=== PATIENT | female | born 1970 | race Caucasian/White ===

== ENCOUNTER → 2016-04-27 | Outpatient (CLI) | payer OTHER ==
[~2016-04-27] MED LIST: ALPR0.25 PO; ALPR0.254 PO; FAMO20TA3 PO; HYOS0.1281 PO; LEVO250T11 PO; LISI10TA2 PO; MELO15TA39 PO; METF500T4 PO; METO-333 PO; METO25TA6 PO; MTF500T PO; NAPR220T66 PO; OXYC-464 PO; PANT40SU PO; PANT40TA3 PO; PHEN-640 PO; SUCR1TAB PO; TAMS0.4C98 PO; VENL75CA PO; VENL75CA93 PO
--- OUTSIDE RECORDS SUMMARY | 2016-04-27 14:37 | XMS REPORT | Continuity of Care Document ---
Author Author [facility] Organization [facility] Address Unknown Phone Unavailable Support Name Relationship Address Phone JAMESON CUNNINGHAM DO Caregiver [address] [place] [address] TONY GILMORE MD Caregiver [address] [place] [address] SIDNEY SANJUANAEDIL Next Of Kin [address] [place] [address] Insurance Providers Payer Name Policy Number Subscriber Name Relationship [place] [id number] Shyanne Moran 18 Self / Same As Patient Advance Directives Directive Response Recorded Date/Time Advance Directives No 02/27/14 10:50am Health Care Power of Juice Bar Team Member No 02/27/14 10:50am Organ Donor Yes 02/27/14 10:50am Resuscitation Status Full Code 02/27/14 10:50am Problems No known problems or medical conditions. Medications Medication Dose Route Sig Days/Qty Instructions Order Date Discontinued Date Status Venlafaxine HCl 75 Mg PO DAILY 02/26/14 Active Metformin HCl (Glucophage) 1 Each PO TWICE A DAY WITH MEALS 02/26/14 Active Metoprolol Tartrate 25 Mg PO TWICE A DAY 02/26/14 Active Lisinopril 10 Mg PO DAILY 02/26/14 Active Alprazolam 0.125-0.25 Mg PO Q8-12HOURS 02/26/14 Active Social History Social History Problem Response Recorded Date/Time Recent Foreign Travel No 02/27/2014 12:20pm Smoking Status Current Everyday Smoker 02/27/2014 10:50am Do you dip or chew tobacco? No 02/27/2014 10:50am Query Response Start Date Stop Date Smoking Status Current Everyday Smoker Hospital Discharge Instructions No hospital discharge instructions. Plan of Care No plan of care. Functional Status No functional status results. Allergies, Adverse Reactions, Alerts Allergen Type Severity Reaction Status Last Updated Penicillins ([id number]) Allergy Unknown ITCHING HANDS AND FEET Active Immunizations Name Given Type Date of Pneumonia Vaccine 03/08/03 Historical Date of Influenza Vaccine 11/06/13 Historical Vital Signs Acute Vital Signs Vital Response Date/Time Temperature (Fahrenheit) 97.8 degrees F (97.6 - 99.5) Temperature (Calculated Celsius) 36.18302 degrees C (36.4 - 37.5) Temperature Source Temporal Pulse Rate (adult) 76 bpm (60 - 90) Respiratory Rate 20 bpm (12 - 24) O2 Sat by Pulse Oximetry 95 % (88 - 100) Blood Pressure 142/89 mm Hg Pain Pain Intensity 1 Height (Feet) 5 feet Height (Inches) 4.00 inches Height (Calculated Centimeters) 162.633186 cm Weight (Pounds) 186 pounds Weight (Calculated Grams) 19410.182 gm Weight (Calculated Kilograms) 84.650690 kilograms Height 5 ft 4 in Weight 186 lb Body Mass Index 31.9 kg/m^2 Results Laboratory Results Test Name Result Units Flags Reference Collection Date/Time Result Date/ Time Comments White Blood Count 7.1 10^3/uL 4.3-11.0 02/26/2014 12:00pm 02/26/2014 12 :25pm Red Blood Count 4.25 10^6/uL L 4.35-5.85 02/26/2014 12:00pm 02/26/2014 12 :25pm Hemoglobin 13.1 G/DL 11.5-16.0 02/26/2014 12:00pm 02/26/2014 12:25pm Hematocrit 38 % 35-52 02/26/2014 12:00pm 02/26/2014 12:25pm Mean Corpuscular Volume 90 FL 80-99 02/26/2014 12:00pm 02/26/2014 12: 25pm Mean Corpuscular Hemoglobin 31 PG 25-34 02/26/2014 12:00pm 02/26/2014 12:25pm Mean Corpuscular Hemoglobin Concent 34 G/DL 32-36 02/26/2014 12:00pm 12:25pm Red Cell Distribution Width 11.8 % 10.0-14.5 02/26/2014 12:00pm 2013 12:25pm Platelet Count 344 10^3/uL 130-400 02/26/2014 12:00pm 02/26/2014 12: 25pm Mean Platelet Volume 9.8 FL 7.4-10.4 02/26/2014 12:00pm 02/26/2014 12: 25pm Neutrophils (%) (Auto) 48 % 42-75 02/26/2014 12:00pm 02/26/2014 12: 25pm Lymphocytes (%) (Auto) 39 % 12-44 02/26/2014 12:00pm 02/26/2014 12: 25pm Monocytes (%) (Auto) 10 % 0-12 02/26/2014 12:00pm 02/26/2014 12:25pm Eosinophils (%) (Auto) 2 % 0-10 02/26/2014 12:00pm 02/26/2014 12:25pm Basophils (%) (Auto) 1 % 0-10 02/26/2014 12:00pm 02/26/2014 12:25pm Neutrophils # (Auto) 3.4 X 10^3 1.8-7.8 02/26/2014 12:00pm 02/26/2014 12:25pm Lymphocytes # (Auto) 2.8 X 10^3 1.0-4.0 02/26/2014 12:00pm 02/26/2014 12:25pm Monocytes # (Auto) 0.7 X 10^3 0.0-1.0 02/26/2014 12:00pm 02/26/2014 12: 25pm Eosinophils # (Auto) 0.1 10^3/uL 0.0-0.3 02/26/2014 12:00pm 02/26/2014 12:25pm Basophils # (Auto) 0.1 10^3/uL 0.0-0.1 02/26/2014 12:00pm 02/26/2014 12 :25pm Prothrombin Time 11.6 SEC L 12.2-14.7 02/26/2014 12:00pm 02/26/2014 12: 36pm INR Comment 0.9 0.8-1.4 02/26/2014 12:00pm 02/26/2014 12:36pm INTERPRETIVE DATA SUGGESTED THERAPEUTIC RANGE FOR INR'S: VENOUS THROMBOSIS, PULMONARY EMBOLISM, OR PREVENTION OF SYSTEMIC EMBOLISM (EG. IN ATRIAL FIBRILLATION): 2.0 - 3.0 MECHANICAL PROSTHETIC HEART VALVES: 2.5 - 3.5* *NOTE: INR'S UP TO 4.5 MAY BE NECESSARY IN SELECTED GROUPS OF HIGH RISK PATIENTS. [employer] CONSENSUS CONFERENCE ON ANTITHROMBOTIC THERAPY (2000). Sodium Level 141 MMOL/L 135-145 02/26/2014 12:00pm 02/26/2014 12:42pm Potassium Level 4.0 MMOL/L 3.6-5.0 02/26/2014 12:00pm 02/26/2014 12: 42pm Chloride Level 108 MMOL/L H 98-107 02/26/2014 12:00pm 02/26/2014 12:42pm Carbon Dioxide Level 23 MMOL/L 21-32 02/26/2014 12:00pm 02/26/2014 12: 42pm Blood Urea Nitrogen 15 MG/DL 7-18 02/26/2014 12:00pm 02/26/2014 12: 42pm Creatinine 0.73 MG/DL 0.60-1.30 02/26/2014 12:00pm 02/26/2014 12:42pm BUN/Creatinine Ratio 21 02/26/2014 12:00pm 02/26/2014 12:42pm Estimat Glomerular Filtration Rate > 60 02/26/2014 12:00pm 2013 12:42pm GFR INTERPRETIVE DATA UNITS FOR ESTIMATED GFR (eGFR): mL/min/1.73 M2 REFERENCE RANGE FOR ESTIMATED GFR (eGFR) eGFR NORMAL eGFR >60 MODERATELY DECREASED eGFR 30-59 SEVERLY DECREASED eGFR 15-29 KIDNEY FAILURE <15 (OR DIALYSIS) Glucose Level 75 MG/DL 70-105 02/26/2014 12:00pm 02/26/2014 12:42pm Calcium Level 9.2 MG/DL 8.5-10.1 02/26/2014 12:00pm 02/26/2014 12:42pm Procedures Procedure Status Date Provider(s) Excision of lesion completed 02/27/14 JAMESON CUNNINGHAM DO Encounters Encounter Location Date/Time Registered Surgical Day Care [facility] 02/27/14 11:30am Registered Clinic [facility] 02/26/14 11:36am
--- NOTE | 2016-04-27 18:51 | Diagnostic Imaging Report ---
INDICATION: Pain and swelling. Three views were obtained. FINDINGS: The alignment is normal. There is no fracture or dislocation. Soft tissues are unremarkable. IMPRESSION: No acute fracture or dislocation. Dictated by: Dictated on workstation # [id number]
== END ==
LOC: RAD 14:34
PROVIDERS: ATTEND Family Medicine
DX: M79.671 Pain in right foot (principal)
CPT/HCPCS: 73630

== ENCOUNTER → 2017-02-08 | Outpatient (CLI) | payer OTHER ==
--- NOTE | 2017-02-08 20:06 | Diagnostic Imaging Report ---
EXAMINATION: Supine view of the abdomen. INDICATION: Kidney stones. COMPARISON: 06/18/2015. FINDINGS: Pelvic calcifications compatible with phleboliths and in addition surgical clip and suggestion of calcified suture lines are seen in the pelvis. No definitive urinary tract stone is seen. Surgical clips in the upper right abdomen are noted. IMPRESSION: No definitive urinary tract stone. Dictated by: Dictated on workstation # [id number]
== END ==
LOC: RAD 15:38
PROVIDERS: ATTEND Urology
DX: Z09 Encounter for follow-up examination after completed treatment for conditions other than malignant neoplasm (principal); Z87.442 Personal history of urinary calculi
CPT/HCPCS: 74000

== ENCOUNTER → 2018-11-04 | Outpatient (CLI) | payer BC ==
[~2018-11-04] VITALS: Ht 165.1 cm; Wt 75.6 kg
[~2018-11-04] MED LIST changes: +CITA20TA9 PO; +LISI-552 PO; +METF-397 PO; -METF500T4 PO; +OMEP40CA36 PO
[2018-11-04 12:01] VITALS: BP 136/96
[2018-11-04 13:15] LABS: BASOPHILS % (AUTO) 1 % (0-10); EOSINOPHILS # (AUTO) 0.2 10^3/uL (0.0-0.3); EOSINOPHILS % (AUTO) 2 % (0-10); HEMATOCRIT 42 % (35-52); HEMOGLOBIN 13.7 G/DL (11.5-16.0); LYMPHOCYTES # (AUTO) 2.2 X 10^3 (1.0-4.0); LYMPHOCYTES % (AUTO) 30 % (12-44); MEAN CORPUSCULAR HEMOGLOBIN 29 PG (25-34); MEAN CORPUSCULAR HGB CONC 33 G/DL (32-36); MEAN CORPUSCULAR VOLUME 88 FL (80-99); MEAN PLATELET VOLUME 10.1 FL (7.4-10.4); MONOCYTES # (AUTO) 0.4 X 10^3 (0.0-1.0); MONOCYTES % (AUTO) 6 % (0-12); NEUTROPHILS # (AUTO) 4.4 X 10^3 (1.8-7.8); NEUTROPHILS % (AUTO) 61 % (42-75); PLATELET COUNT 334 10^3/uL (130-400); RED CELL DISTRIBUTION WIDTH 13.5 % (10.0-14.5); WHITE BLOOD COUNT 7.2 10^3/uL (4.3-11.0)
== END ==
LOC: PREOP 11:34
PROVIDERS: ATTEND Surgery
DX: Z01.812 Encounter for preprocedural laboratory examination (principal); K57.90 Diverticulosis of intestine, part unspecified, without perforation or abscess without bleeding
CPT/HCPCS: 36415; 85025; 86850; 86900; 86901; 87081

== ENCOUNTER 2018-11-10 09:10 | Inpatient (IN) | payer BC, OTHER ==
[~2018-11-10] VITALS: Ht 165.1 cm; Wt 75.6 kg
[2018-11-10] VITALS (11 sets, daily range): BP systolic 109–137; BP diastolic 61–96
[2018-11-10] MEDS ORDERED: SCOPOLAMINE 1.5 MG (TRANSDERM-SCOP) PATCH TOP ONE (09:30)
[2018-11-10] MEDS ORDERED: FAMOTIDINE 20MG/2ML IV (PEPCID) IV ONE (09:30)
[2018-11-10] MEDS ORDERED: ONDANSETRON 4 MG/2 ML (SDV) Z0FRAN IV ONE (09:30)
[2018-11-10] MEDS ORDERED: FAMOTIDINE 20MG/2ML IV (PEPCID) ONE (09:35)
[2018-11-10] MEDS ORDERED: ONDANSETRON 4 MG/2 ML (SDV) Z0FRAN ONE ×2 (09:35→09:54)
[2018-11-10] MEDS ORDERED: SCOPOLAMINE 1.5 MG (TRANSDERM-SCOP) PATCH ONE (09:35)
[2018-11-10] MEDS ORDERED: SEVOFLURANE (ULTANE) 15 ML INHAL SOLN ONE ×7 (09:54→12:43)
[2018-11-10] MEDS ORDERED: DEXAMETHASONE 10 MG/ML (DECADRON) 1 ML VIAL ONE (09:54)
[2018-11-10] MEDS ORDERED: LIDOCAINE PF 2% 5 ML (XYLOCAINE) VIAL ONE (09:54)
[2018-11-10] MEDS ORDERED: BUPIVACAINE 0.5% 30 ML (SENSORCAINE) VIAL ONE (09:54)
[2018-11-10] MEDS ORDERED: proPOfol 200 MG/20 ML (DIPRIVAN) VIAL IV ONE (09:54)
[2018-11-10] MEDS ORDERED: fentaNYL INJECTION 100 MCG/2 ML AMP ONE ×2 (09:55→12:38)
[2018-11-10] MEDS ORDERED: BUP/EPI 0.25% 1:200,000 (MARCAINE) 10 ML VIAL IJ ONE (09:57)
[2018-11-10] MEDS ORDERED: MIDAZOLAM 2 MG/2 ML (VERSED) VIAL ONE (09:57)
[2018-11-10] MEDS ORDERED: ROCURONIUM 10 MG/ML 5 ML SYRINGE IV ONE (09:58)
[2018-11-10] MEDS ORDERED: CATHETER FLUSH 10 ML SYR IV PRN (10:00)
[2018-11-10] MEDS ORDERED: metroNIDAZOLE 500MG/100ML IVPB 100 ML IV ONE (10:00)
[2018-11-10] MEDS ORDERED: CLINDAMYCIN 600 MG/50 ML IVPB 50 ML IV ONE (10:00)
[2018-11-10] MEDS: LACTATED RINGERS 1,000 ML IV PRN ×3 (10:07→13:20)
--- NOTE | 2018-11-10 10:43 | Progress Note-Pre Operative ---
Pre-Operative Progress Note H&P Reviewed The H&P was reviewed, patient examined and no changes noted. Date Seen by Provider: Nov 10, 2018 Time Seen by Provider: 10:43 Date H&P Reviewed: Nov 10, 2018 Time H&P Reviewed: 10:43 Pre-Operative Diagnosis: diverticular stricture ALTON PATEL DO Nov 10, 2018 10:43
[2018-11-10] MEDS ORDERED: NEOSTIGMINE 3 MG/3 ML VIAL ONE (12:44)
[2018-11-10] MEDS ORDERED: GLYCOPYRROLATE 0.2 MG/ML (ROBINUL) 2 ML VIAL ONE (12:44)
[2018-11-10] MEDS ORDERED: morphine INJ 10 MG/ML 1ML (SYR OR VIAL) IVP ONE (13:30)
[2018-11-10] MEDS ORDERED: PROMETHAZINE INJ 25 MG/ML (PHENERGAN) AMP IVP ONE (13:30)
[2018-11-10] MEDS ORDERED: ONDANSETRON 4 MG/2 ML (SDV) Z0FRAN IVP PRN (13:30)
[2018-11-10] MEDS ORDERED: HYDROmorphone 2 MG/ML VIAL (DILAUDID) IV ONE (13:30)
[2018-11-10] MEDS ORDERED: MEPERIDINE (DEMEROL) INJ 50 MG/ML IVP ONE (13:30)
[2018-11-10] MEDS ORDERED: HYDROmorphone 2 MG/ML VIAL (DILAUDID) ONE (13:31)
--- NOTE | 2018-11-10 13:37 | Progress Note-Post Operative ---
Post-Operative Progess Note Surgeon (s)/Small Electric Engine Technician (s) Surgeon ALTON PATEL DO Small Electric Engine Technician: Dr. Concepcion Pre-Operative Diagnosis diverticular stricture Post-Operative Diagnosis same Procedure & Operative Findings Date of Procedure 11/10/18 Procedure Performed/Findings lap hand assisted sigmoid resection Anesthesia Type gen Estimated Blood Loss Estimated blood loss (mL): minimal Specimens/Packing Specimens Removed sigmoid colon ALTON PATEL DO Nov 10, 2018 13:37
--- NOTE | 2018-11-10 14:25 | NUR ---
Pt arrived to room 418 from PACU post surgical lap/hand assisted sigmoid colon resection. Pt is awake and oriented x 4, LR infusing into L) wrist. Island dressing to midline abdomen has moderate sanguinous drainage, bandaids Addendum: 11/10/18 at 1533 by BOWEN HUNTLEY RN bandaids to lap sites x 2 intact and c/d/i
[2018-11-10] MEDS: NS IV 1000 ML 1,000 ML IV SCH ×2 (15:14→21:43)
[2018-11-10] MEDS: HYDROcodone/APAP 5 MG/325 MG (LORTAB) TAB PO PRN ×2 (15:44→20:06)
[2018-11-10] MEDS: inSUlin ASPART (NovoLOG) 1 UNIT/0.01 ML (CHARGE PER UNIT) SC SCH ×2 (16:11→21:07)
[2018-11-10] MEDS: CLINDAMYCIN 600 MG/50 ML IVPB 50 ML IV SCH (17:12)
[2018-11-10] MEDS: metroNIDAZOLE 500MG/100ML IVPB 100 ML IV SCH (17:50)
[2018-11-10] MEDS: morphine INJ 4 MG/ML 1 ML (VIAL/SYRINGE) IV PRN (20:06)
[2018-11-10] MEDS ORDERED: ENOXAPARIN 40 MG/0.4 ML (LOVENOX) SYR SC SCH (21:00)
[2018-11-11] VITALS: BP 131/74
[2018-11-11] MEDS: HYDROcodone/APAP 5 MG/325 MG (LORTAB) TAB PO PRN ×3 (00:13→13:05)
[2018-11-11] MEDS: NS IV 1000 ML 1,000 ML IV SCH ×3 (00:13→18:10)
[2018-11-11] MEDS: CLINDAMYCIN 600 MG/50 ML IVPB 50 ML IV SCH (02:18)
[2018-11-11] MEDS: metroNIDAZOLE 500MG/100ML IVPB 100 ML IV SCH (02:18)
[2018-11-11 04:00] VITALS: BP 134/72
[2018-11-11 05:00] LABS: BASOPHILS % (AUTO) 0 % (0-10); EOSINOPHILS % (AUTO) 0 % (0-10); HEMATOCRIT 36 % (35-52); HEMOGLOBIN 11.7 G/DL (11.5-16.0); LYMPHOCYTES # (AUTO) 1.2 X 10^3 (1.0-4.0); LYMPHOCYTES % (AUTO) 12 % (12-44); MEAN CORPUSCULAR HEMOGLOBIN 29 PG (25-34); MEAN CORPUSCULAR HGB CONC 33 G/DL (32-36); MEAN CORPUSCULAR VOLUME 88 FL (80-99); MEAN PLATELET VOLUME 9.9 FL (7.4-10.4); MONOCYTES # (AUTO) 0.9 X 10^3 (0.0-1.0); MONOCYTES % (AUTO) 9 % (0-12); NEUTROPHILS # (AUTO) 7.9 X 10^3 (1.8-7.8); NEUTROPHILS % (AUTO) 80 % (42-75); PLATELET COUNT 289 10^3/uL (130-400); RED CELL DISTRIBUTION WIDTH 13.4 % (10.0-14.5); WHITE BLOOD COUNT 9.9 10^3/uL (4.3-11.0)
[2018-11-11 05:19] LABS: ALANINE AMINOTRANSFERASE 18 U/L (0-55); ALBUMIN 3.6 GM/DL (3.2-4.5); ALKALINE PHOSPHATASE 61 U/L (40-136); BILIRUBIN,TOTAL 0.3 MG/DL (0.1-1.0); BUN/CREATININE RATIO 14; CALCIUM 8.5 MG/DL (8.5-10.1); CARBON DIOXIDE 21 MMOL/L (21-32); CHLORIDE 110 MMOL/L (98-107); CREATININE SERUM 0.77 MG/DL (0.60-1.30); GFR ESTIMATED > 60; GLUCOSE 116 MG/DL (70-105); SODIUM 139 MMOL/L (135-145); TOTAL PROTEIN 6.2 GM/DL (6.4-8.2)
[2018-11-11] MEDS: inSUlin ASPART (NovoLOG) 1 UNIT/0.01 ML (CHARGE PER UNIT) SC SCH (06:37)
--- NOTE | 2018-11-11 07:16 | Progress Note - Surgery ---
[facility] 11/11/18 0716: Subjective Date Seen by a Provider: Nov 11, 2018 Time Seen by a Provider: 07:09 Subjective/Events-last exam Patient underwent sigmoid resection yesterday. Patient is alert and oriented experiences no pain in bed and mild pain when ambulating. Patient reported problems with her catheter that was previously causing her severe pain but this has been resolved. Patient has not passed gas and has not had a bowel movement. Urinated only once since the catheter was removed at midnight last night. Patient ambulated once with help and tolerates sitting, but has only sat up in her bed. Patient used spirometer 2-3 times yesterday. Objective Exam Vital Signs Date Time Temp Pulse Resp B/P (MAP) Pulse Ox O2 Delivery O2 Flow Rate FiO2 11/11/18 04:00 97.4 87 18 134/72 (92) 98 Room Air 11/11/18 00:00 97.2 107 20 131/74 (93) 93 Room Air 11/10/18 21:00 Room Air 11/10/18 20:00 98.6 99 18 125/82 (96) 95 Room Air 11/10/18 17:48 Room Air 11/10/18 16:00 97.5 92 20 121/80 (94) 98 Room Air 11/10/18 14:25 Room Air 0 11/10/18 14:25 98.3 78 18 118/76 (90) 96 Room Air 11/10/18 14:25 97.2 20 98 Room Air 11/10/18 14:15 Room Air 0 11/10/18 14:10 20 98 Room Air 11/10/18 14:00 20 96 Room Air 11/10/18 14:00 OxyMask 3 11/10/18 13:50 20 99 OxyMask 2 11/10/18 13:45 OxyMask 3 11/10/18 13:40 20 98 OxyMask 2 11/10/18 13:30 20 100 OxyMask 5 11/10/18 13:30 OxyMask 5 11/10/18 13:20 16 100 OxyMask 5 11/10/18 13:15 OxyMask 5 11/10/18 13:12 OxyMask 5 11/10/18 13:12 97.2 16 100 OxyMask 5 11/10/18 09:35 98.0 66 16 137/83 98 Room Air 11/10/18 09:35 98.0 66 16 137/83 (101) 98 Room Air I & O 11/11/18 07:00 Intake Total 4075 ml Output Total 2050 ml Balance 2025 ml Capillary Refill : Less Than 3 Seconds Respiratory: Lungs Clear Cardiovascular: Regular Rate, Rhythm, No Murmur Results Lab Laboratory Tests 11/10/18 15:49: Glucometer 114H 11/10/18 20:39: Glucometer 116H 11/11/18 04:25: White Blood Count 9.9, Red Blood Count 4.03L, Hemoglobin 11.7, Hematocrit 36, Mean Corpuscular Volume 88, Mean Corpuscular Hemoglobin 29, Mean Corpuscular Hemoglobin Concent 33, Red Cell Distribution Width 13.4, Platelet Count 289, Mean Platelet Volume 9.9, Neutrophils (%) (Auto) 80H, Lymphocytes (%) (Auto) 12, Monocytes (%) (Auto) 9, Eosinophils (%) (Auto) 0, Basophils (%) (Auto) 0, Neutrophils # (Auto) 7.9H, Lymphocytes # (Auto) 1.2, Monocytes # (Auto) 0.9, Eosinophils # (Auto) 0.0, Basophils # (Auto) 0.0, Sodium Level 139, Potassium Level 4.0, Chloride Level 110H, Carbon Dioxide Level 21, Anion Gap 8, Blood Urea Nitrogen 11, Creatinine 0.77, Estimat Glomerular Filtration Rate > 60, BUN/Creatinine Ratio 14, Glucose Level 116H, Calcium Level 8.5, Corrected Calcium 8.8, Total Bilirubin 0.3, Aspartate Amino Transf (AST/SGOT) 19, Alanine Aminotransferase (ALT/SGPT) 18, Alkaline Phosphatase 61, Total Protein 6.2L, Al bumin 3.6 11/11/18 06:17: Glucometer 116H Assessment/Plan Assessment/Plan Assessment/Plan Continue to assess pain Ensure patient has bowel movement Ambulation Sitting up in recliner Clinical Quality Measures DVT/VTE Risk/Contraindication: Risk Factor Score Per Nursin RFS Level Per Nursing on Admit: 4+=Very High ALTON FERREIRA DO 11/11/18 1317: Subjective Subjective/Events-last exam Patient ambulating and sitting up in chair currently. Pain fairly controlled, but after walk has increased. No flatus or bm. Tolerating clears. Using IS. Denies n/v fever sweats chills shortness of breath or chest pain. Objective Exam General Appearance: No Apparent Distress HEENT: PERRL/EOMI Neck: Normal Inspection Respiratory: Chest Non Tender, No Accessory Muscle Use, No Respiratory Distress Cardiovascular: Regular Rate, Rhythm Gastrointestinal: normal bowel sounds, soft, other (incisional tenderness, c/d/i) Extremity: Normal Inspection, Non Tender Neurologic/Psychiatric: Alert, Oriented x3 Skin: Normal Color, Warm/Dry Lymphatic: No Adenopathy Assessment/Plan Assessment/Plan Assessment/Plan diverticular stricture s/p lap hand assisted sigmoid resection clear liquid diet will advance when bowel function returns if gets nauseated or emesis instructed to back off on clears pain control dvt prophylaxis ambulate IS Supervisory-Addendum Brief Verification & Attestation Participated in pt care: history, MDM, physical Personally performed: exam, history, MDM, supervision of care Care discussed with: Medical Student Procedures: n/a Results interpretation: Verified all documentation Verification and Attestation of Medical Student E/M Service A medical student performed and documented this service in my presence. I reviewed and verified all information documented by the medical student and made modifications to such information, when appropriate. I personally performed the physical exam and medical decision making. Alton Ferreira, Nov 11, 2018,13:19 [facility] Nov 11, 2018 07:16 ALTON FERREIRA DO Nov 11, 2018 13:17
[2018-11-11 08:07] VITALS: BP 138/75
--- NOTE | 2018-11-11 09:10 | OPERATIVE REPORT ---
DATE OF SERVICE: 11/10/2018 PREOPERATIVE DIAGNOSIS: Diverticular stricture. POSTOPERATIVE DIAGNOSIS: Diverticular stricture. PROCEDURE PERFORMED: Laparoscopic hand-assisted sigmoid colon resection. SURGEON: Toby Ferreira DO EDITOR MANAGING DIRECTOR: Dr. Concepcion, assisted in retraction, dissection and closure. ANESTHESIA: General. ESTIMATED BLOOD LOSS: Minimal. COMPLICATIONS: None. INDICATIONS: The patient is a 48-year-old female, who had recent colonoscopy and found to have diverticular stricture. She has also had multiple episodes of diverticulitis, which she has been treated for. She understands risks and benefits of procedure and wished to proceed with procedure. Consent was signed in the chart. DESCRIPTION OF PROCEDURE: The patient was taken to the operating suite. She was prepped and draped in sterile fashion. Surgical pause was performed. Midline incision was made all the way down to the fascia, which was then scored and then abdomen was entered. The fascial defect was increased in size to where a hand port to be placed. Under direct visualization, a left lower quadrant 12 mm incision was made for 12 mm trocar site to be placed. The Gel handport was placed and pneumoperitoneum was achieved. Under direct visualization of the laparoscope, a 12 mm trocar was placed in the right lower quadrant. There were some adhesions down into the pelvis at the sigmoid colon and also causing slight turn to it as well. A firm mass was palpable in the distal portion of the sigmoid colon. LigaSure was then used to start taking down the sigmoid colon and mobilizing it to give more mobilization. Sigmoid colon was also mobilized along the white line of Toldt up along the left pelvis and left gutter. Distal to the palpable firmness, which is presumed to be the stricture. A finger was used to dissect around the colon and a RAKESH stapler was then fired. Proximal to this diverticular stricture, we dissected around the colon as well and use an Endo-RAKESH reload firing across the specimen. LigaSure was then used to divide the mesentery. The specimen was then obtained with a stitch being placed on the proximal end. The proximal portion of the colon was then brought up through the hand port. A pursestring suture was placed and a 28 anvil was inserted and secured. This was dropped back into the abdomen and pneumoperitoneum was achieved again. Dr. Concepcion went below in order to do an end-to-end anastomosis. He did dilations first and then brought the EEA stapler into the rectum and this was then fired in the usual fashion. An air test was performed after irrigation was placed down in the pelvis. There was no leak identified. There was no tension on the colon on the anastomosis. Hemostasis had been achieved. The abdomen was then desufflated. The midline incision was then closed using 1-0 looped PDS in a running fashion and the abdomen was then reinsufflated. The abdomen had good closure. The abdomen was then desufflated, the trocars were removed. The wounds were then irrigated and suctioned and the skin was then stapled closed. The patient tolerated procedure well without any complications. She was taken to recovery room in stable condition. Job ID: [id number] DocumentID: [id number] Dictated Date: 11/10/2018 14:16:22 Numerical Analysis Group Manager Date: 11/10/2018 16:13:38 Dictated By: DO SPIKE DONNELLY
[2018-11-11] MEDS: NICOTINE 14 MG (NICODERM) PATCH TD SCH (09:48)
--- NOTE | 2018-11-11 10:58 | Physical Therapy Progress Note ---
Therapy Progress Note Patient is up independently in hallway without difficulty. No skilled therapy indicated. AMRITA BENITEZ PT Nov 11, 2018 10:58
--- NOTE | 2018-11-11 12:17 | NUR ---
Initial visit with the pt ("Rhonda") and her significant other who goes by "Kathy." Both were congenial, inviting and demonstrated ease and openness throughout our visit. They enjoy riding motorcycles together. Kathy is a member of [employer] (the chapter in [place]: [place] He and the pt have been together for over a year. The pt's parents used to ride as well. Her father 6 years ago today, and the pt now cares for her mother who was diagnosed with rectal cancer last year. She anticipated that her mother may need to move into assisted living due to increased weakness and difficulty ambulating safely.
[2018-11-11 12:59] VITALS: BP 165/91
[2018-11-11] MEDS ORDERED: ACETAMINOPHEN 325 MG TABLET PO PRN (13:15)
[2018-11-11] MEDS ORDERED: MELATONIN 3 MG TABLET PO PRN (13:15)
[2018-11-11] MEDS ORDERED: lisINopril 20 MG (PRINIVIL) TABLET PO NR (13:30)
[2018-11-11] MEDS ORDERED: hydrALAZINE (APRESOLINE) 25 MG TAB PO PRN (13:30)
[2018-11-11] MEDS ORDERED: meTOprolol TARTRATE 25 MG (LOPRESSOR) TABLET PO NR (13:30)
--- NOTE | 2018-11-11 14:00 | NUR ---
PATIENT C/O HEADACHE, REQUESTING HOME MEDICATIONS, DR MARSHALL NOTIFIED AND ORDERS GIVEN
--- NOTE | 2018-11-11 14:43 | Anesthesia-General Post-Op ---
General Patient Condition Mental Status/LOC: Same as Preop Cardiovascular: Satisfactory Nausea/Vomiting: Absent Respiratory: Satisfactory Pain: Controlled Complications: Absent Post Op Complications Complications None Follow Up Care/Instructions Patient Instructions None needed. Anesthesia/Patient Condition Patient Condition Patient is doing well, no complaints, stable vital signs, no apparent adverse anesthesia problems. MONAE COVARRUBIAS DO Nov 11, 2018 14:43
--- NOTE | 2018-11-11 15:52 | Progress Note - Hospitalist ---
Subjective HPI/CC On Admission Date Seen by Provider: Nov 11, 2018 Time Seen by Provider: 11:00 Diverticular stricture Subjective/Events-last exam She reports a headache this morning. She thinks this is due to her blood pressure being higher than normal. She denies any nausea and vomiting. She has been tolerating her clear liquid diet. She would like to have her diet advanced. She is not yet passing gas or having bowel movements. She denies any fevers and chills. She denies any chest pain or shortness of breath. She is using her incentive spirometer. Objective Exam Vital Signs Vital Signs Date Time Temp Pulse Resp B/P (MAP) Pulse Ox O2 Delivery O2 Flow Rate FiO2 11/11/18 12:59 98.5 77 20 165/91 (115) 99 Room Air 11/10/18 14:25 0 Capillary Refill : Less Than 3 Seconds General Appearance: No Apparent Distress, WD/WN HEENT: PERRL/EOMI, Pharynx Normal Neck: Normal Inspection, Supple Respiratory: Lungs Clear, Normal Breath Sounds, No Respiratory Distress Cardiovascular: Regular Rate, Rhythm, No Edema, No Murmur Gastrointestinal: Soft, Tenderness, Other (Hypoactive bowel sounds) Extremity: Normal Inspection, Non Tender, No Pedal Edema Neurologic/Psychiatric: Alert, Oriented x3 Skin: Normal Color, Warm/Dry Lymphatic: No Adenopathy Results/Procedures Lab Laboratory Tests 11/11/18 04:25 Patient resulted labs reviewed. Assessment/Plan Assessment and Plan Assess & Plan/Chief Complaint Diverticular stricture Status post partial sigmoid colectomy Tolerating a liquid diet Not yet passing gas Continue incentive spirometer Continue ambulation Begin pharmacologic DVT prophylaxis this evening with Lovenox Hypertension Resume home meds History of diabetes Blood sugars well-controlled Discontinue Accu-Cheks and sliding scale Diagnosis/Problems Diagnosis/Problems (1) Diverticular stricture Status: Resolved Resolution Date/Time: 11/10/18 @ 15:52 (2) Essential hypertension Status: Chronic Clinical Quality Measures DVT/VTE Risk/Contraindication: Risk Factor Score Per Nursin RFS Level Per Nursing on Admit: 4+=Very High AILEEN MARSHALL MD Nov 11, 2018 15:52
[2018-11-11 16:00] VITALS: BP 137/81
[2018-11-11 20:00] VITALS: BP 171/85
[2018-11-11] MEDS: morphine INJ 4 MG/ML 1 ML (VIAL/SYRINGE) IV PRN (20:43)
[2018-11-11] MEDS: meTOprolol TARTRATE 25 MG (LOPRESSOR) TABLET PO SCH (20:44)
[2018-11-11] MEDS: ENOXAPARIN 40 MG/0.4 ML (LOVENOX) SYR SC SCH (20:44)
[2018-11-12] VITALS: BP 160/91
[2018-11-12] MEDS: NS IV 1000 ML 1,000 ML IV SCH ×3 (01:45→17:46)
[2018-11-12 04:00] VITALS: BP 157/95
[2018-11-12] MEDS: PANTOPRAZOLE 40 MG (PROTONIX) TAB PO SCH (06:18)
[2018-11-12 08:00] VITALS: BP 162/89
[2018-11-12] MEDS: lisINopril 20 MG (PRINIVIL) TABLET PO SCH (08:02)
[2018-11-12] MEDS: ONDANSETRON 4 MG (ZOFRAN) ORAL DISSOLVE TAB PO PRN ×2 (08:04→13:01)
[2018-11-12] MEDS: NICOTINE PATCH REMOVAL TP SCH (08:10)
[2018-11-12] MEDS: NICOTINE 14 MG (NICODERM) PATCH TD SCH (08:10)
[2018-11-12] MEDS: meTOprolol TARTRATE 25 MG (LOPRESSOR) TABLET PO SCH ×2 (08:10→19:36)
[2018-11-12] MEDS ORDERED: lisINopril 20 MG (PRINIVIL) TABLET PO SCH (09:00)
--- NOTE | 2018-11-12 11:13 | Progress Note - Hospitalist ---
Subjective HPI/CC On Admission Date Seen by Provider: Nov 12, 2018 Time Seen by Provider: 08:30 Diverticular stricture Subjective/Events-last exam She reports that she slept okay last night. She denies any headaches this morning. She denies any nausea or vomiting. She has not yet passed gas or had a bowel movement. She has been using her incentive spirometer and ambulating. She is very hungry and is requesting to advance her diet. Objective Exam Vital Signs Vital Signs Date Time Temp Pulse Resp B/P (MAP) Pulse Ox O2 Delivery O2 Flow Rate FiO2 11/12/18 08:00 99.5 68 18 162/89 (113) 96 Room Air 11/10/18 14:25 0 Capillary Refill : Less Than 3 Seconds General Appearance: No Apparent Distress, WD/WN HEENT: PERRL/EOMI, Pharynx Normal Neck: Normal Inspection, Supple Respiratory: Lungs Clear, Normal Breath Sounds, No Respiratory Distress Cardiovascular: Regular Rate, Rhythm, No Edema, No Murmur Gastrointestinal: Other (soft, mildly tender, hypoactive bowel sounds) Extremity: Normal Inspection, Non Tender, No Pedal Edema Neurologic/Psychiatric: Alert Skin: Normal Color, Warm/Dry Results/Procedures Lab Patient resulted labs reviewed. Assessment/Plan Assessment and Plan Assess & Plan/Chief Complaint Diverticular stricture Status post partial sigmoid colectomy Tolerating a liquid diet Not yet passing gas Continue incentive spirometer Continue ambulation continue Lovenox Hypertension increase lisinopril History of diabetes Blood sugars well-controlled no need for Accu-Cheks Diagnosis/Problems Diagnosis/Problems (1) Diverticular stricture Status: Resolved Resolution Date/Time: 11/10/18 @ 15:52 (2) Essential hypertension Status: Chronic Clinical Quality Measures DVT/VTE Risk/Contraindication: Risk Factor Score Per Nursin RFS Level Per Nursing on Admit: 4+=Very High AILEEN MARSHALL MD Nov 12, 2018 11:13
[2018-11-12 12:00] VITALS: BP 150/88
--- NOTE | 2018-11-12 12:35 | Progress Note - Surgery ---
Subjective Time Seen by a Provider: 11:56 Subjective/Events-last exam Pt seen and examined, sitting in chair and states she had some flatus. Pain is still moderate and had to use IV meds. Review of Systems General: No Chills, No Night Sweats Pulmonary: No Cough Cardiovascular: No: Chest Pain Gastrointestinal: No: Nausea, Vomiting Objective Exam Vital Signs Date Time Temp Pulse Resp B/P (MAP) Pulse Ox O2 Delivery O2 Flow Rate FiO2 11/12/18 12:00 98.7 71 20 150/88 (108) 97 Room Air 11/12/18 08:00 99.5 68 18 162/89 (113) 96 Room Air 11/12/18 04:00 98.3 72 16 157/95 (115) 96 Room Air 11/12/18 00:00 98.7 70 14 160/91 (114) 96 Room Air 11/11/18 20:30 96 Room Air 11/11/18 20:00 99.9 72 18 171/85 (113) 98 Room Air 11/11/18 16:00 99.7 84 18 137/81 (99) 98 Room Air 11/11/18 12:59 98.5 77 20 165/91 (115) 99 Room Air I & O 11/12/18 07:00 Intake Total 4437 ml Balance 4437 ml Capillary Refill : Less Than 3 Seconds General Appearance: No Apparent Distress, WD/WN HEENT: PERRL/EOMI Neck: Normal Inspection, Supple Respiratory: Lungs Clear, Normal Breath Sounds, No Respiratory Distress Cardiovascular: Regular Rate, Rhythm, No Edema, No Murmur Gastrointestinal: normal bowel sounds, soft, other (incisional tenderness, c/d/i) Extremity: No Calf Tenderness, No Pedal Edema Neurologic/Psychiatric: Alert Results Lab Laboratory Tests 11/11/18 16:17: Glucometer 73 11/12/18 05:39: Glucometer 86 Assessment/Plan Assessment/Plan Assessment/Plan S/P Sigmoid resection Increase to soft diet, encourage ambulation and IS use. Once tolerating diet and on PO pain meds only; can be d/cd home. Clinical Quality Measures DVT/VTE Risk/Contraindication: Risk Factor Score Per Nursin RFS Level Per Nursing on Admit: 4+=Very High FITZ HUDSON DO Nov 12, 2018 12:35
[2018-11-12] MEDS: morphine INJ 4 MG/ML 1 ML (VIAL/SYRINGE) IV PRN ×3 (13:01→21:28)
[2018-11-12 16:00] VITALS: BP 138/80
[2018-11-12] MEDS: ENOXAPARIN 40 MG/0.4 ML (LOVENOX) SYR SC SCH (19:37)
[2018-11-13] VITALS: BP 133/80
[2018-11-13] MEDS: NS IV 1000 ML 1,000 ML IV SCH (01:49)
[2018-11-13] MEDS: PANTOPRAZOLE 40 MG (PROTONIX) TAB PO SCH (06:10)
[2018-11-13 07:11] LABS: WHITE BLOOD COUNT 6.5 10^3/uL (4.3-11.0)
[2018-11-13 07:12] LABS: MEAN PLATELET VOLUME 10.1 FL (7.4-10.4); RED CELL DISTRIBUTION WIDTH 13.6 % (10.0-14.5)
[2018-11-13 07:33] LABS: BUN/CREATININE RATIO 9; CALCIUM 8.4 MG/DL (8.5-10.1); CARBON DIOXIDE 23 MMOL/L (21-32); CHLORIDE 108 MMOL/L (98-107); CREATININE SERUM 0.76 MG/DL (0.60-1.30); GFR ESTIMATED > 60; GLUCOSE 75 MG/DL (70-105); POTASSIUM 3.2 MMOL/L (3.6-5.0); SODIUM 141 MMOL/L (135-145)
[2018-11-13] MEDS: lisINopril 20 MG (PRINIVIL) TABLET PO SCH (07:38)
[2018-11-13] MEDS: NICOTINE 14 MG (NICODERM) PATCH TD SCH (07:39)
[2018-11-13] MEDS: meTOprolol TARTRATE 25 MG (LOPRESSOR) TABLET PO SCH (07:39)
[2018-11-13] MEDS: NICOTINE PATCH REMOVAL TP SCH (07:43)
[2018-11-13 08:00] VITALS: BP 144/89
[2018-11-13] MEDS ORDERED: LISI-552 PO (09:39)
--- NOTE | 2018-11-13 09:42 | Progress Note - Hospitalist ---
Subjective HPI/CC On Admission Date Seen by Provider: Nov 13, 2018 Time Seen by Provider: 09:40 Diverticular stricture Subjective/Events-last exam She reports tolerating the soft diet well. She has been passing gas. She has not had a bowel movement. She has been ambulating. She has been using her incentive spirometer. She denies any fevers or chills. She denies any chest pain, shortness of breath, abdominal pain, nausea, or vomiting. Objective Exam Vital Signs Vital Signs Date Time Temp Pulse Resp B/P (MAP) Pulse Ox O2 Delivery O2 Flow Rate FiO2 11/13/18 08:00 97.4 68 19 144/89 (107) 98 Room Air 11/10/18 14:25 0 Capillary Refill : Less Than 3 Seconds General Appearance: No Apparent Distress, WD/WN HEENT: PERRL/EOMI, Pharynx Normal Neck: Normal Inspection, Supple Respiratory: Lungs Clear, Normal Breath Sounds, No Respiratory Distress Cardiovascular: Regular Rate, Rhythm, No Edema, No Murmur Gastrointestinal: Normal Bowel Sounds, Soft, Tenderness Extremity: Normal Inspection, Non Tender, No Pedal Edema Neurologic/Psychiatric: Alert, Oriented x3 Skin: Normal Color, Warm/Dry Lymphatic: No Adenopathy Results/Procedures Lab Laboratory Tests 11/13/18 06:17 Patient resulted labs reviewed. Assessment/Plan Assessment and Plan Assess & Plan/Chief Complaint Diverticular stricture Status post partial sigmoid colectomy Tolerating soft diet Passing gas, no bowel movement at this time Using incentive spirometer Ambulating Hypertension Continue increased dose of lisinopril History of diabetes Blood sugars well-controlled no need for Accu-Cheks Diagnosis/Problems Diagnosis/Problems (1) Diverticular stricture Status: Resolved Resolution Date/Time: 11/10/18 @ 15:52 (2) Essential hypertension Status: Chronic Clinical Quality Measures DVT/VTE Risk/Contraindication: Risk Factor Score Per Nursin RFS Level Per Nursing on Admit: 4+=Very High AILEEN MARSHALL MD Nov 13, 2018 09:42
--- NOTE | 2018-11-13 11:37 | Discharge Inst-Surgical ---
Discharge Inst-Surgical Reconcile Patient Problems Problems Reviewed?: Yes Depart Medication/Instructions New, Converted or Re-Newed RX: RX Given to Pt/Family Patient Instructions Follow up Appt: Make appointment for 1 week. [phone] Instructions: No lifting greater than 20 pounds. No strenuous activity. May shower in 24 hours, no tub bath or soaking. Use incentive spirometer at home as directed. No Smoking Skin/Wound Care: May remove bandages in am. You need to leave the roosevelt in place and come in to the clinic for removal. Symptoms to Report: Appetite Changes, Extremity Discoloration, Numbness/Tingling, Swelling Increased, Bleeding Excessive, Eyesight Changes, Pain Increased, Urine Color Change, Constipation(Persistent), Fever over 101 degree F, Pain/Pressure in chest, Urinating Difficulty, Cough Up/Vomit Blood, Heart Beat Irreg/Pounding, Pain/Pressure in jaw, Cramps in feet or legs, Lightheadedness, Pain/Pressure in shoulder, Diarrhea(Persistent), Memory Changes Suddenly, Questions/Concerns, Weight gain consecutive days, Dizziness/Fainting, Nausea/Vomiting, Shortness of Breath, Weight gain over 2 pounds If questions or concerns contact your physician Or seek help at emergency department. Activity Activity as Tolerated: Yes Activity Instructions: Avoid Stress to Incision Driving Instructions: No Driving/Refer to Dr. Juarez Discharge Diet: Other Diet (increased fluids and fiber, avoid red meat) Diet After 24 Hours: Clear Liquid if Nauseous If Any Problems/Questions/Issu: Contact Your Physician, Go to Emergency Room Skin/Wound Care Infection Signs and Symptoms: Increased Redness, Foul Odor of Wound, Increased Drainage, Skin Itchy or Has a Rash, Increased Swelling, Temperature Above 101 F Bathing Instructions: Shower Stitches/Dawson/Dermabond Dis: Care of FITZ Barlow DO Nov 13, 2018 11:37
[2018-11-13] MEDS ORDERED: HYDR-3820 PO (11:38)
--- NOTE | 2018-11-13 11:42 | Progress Note - Surgery ---
Subjective Time Seen by a Provider: 11:05 Subjective/Events-last exam Pt seen and examined, states she is ready to go home. + Flatus but no BM yet, tolerating soft diet. Review of Systems General: No Chills Pulmonary: No Dyspnea, No Cough Cardiovascular: No: Chest Pain Gastrointestinal: Abdominal Pain (mostly at incision); No: Nausea, Vomiting Objective Exam Vital Signs Date Time Temp Pulse Resp B/P (MAP) Pulse Ox O2 Delivery O2 Flow Rate FiO2 11/13/18 09:52 Room Air 11/13/18 08:00 97.4 68 19 144/89 (107) 98 Room Air 11/13/18 00:00 99.4 81 12 133/80 (97) 95 Room Air 11/12/18 20:28 Room Air 11/12/18 16:00 98.8 79 16 138/80 (99) 97 Room Air 11/12/18 12:00 98.7 71 20 150/88 (108) 97 Room Air I & O 11/13/18 07:00 Intake Total 3070 ml Balance 3070 ml Capillary Refill : Less Than 3 Seconds General Appearance: No Apparent Distress, WD/WN HEENT: PERRL/EOMI, Pharynx Normal Neck: Normal Inspection, Supple Respiratory: Lungs Clear, Normal Breath Sounds, No Respiratory Distress Cardiovascular: Regular Rate, Rhythm, No Edema, No Murmur Gastrointestinal: normal bowel sounds, soft, other (incisional tenderness, c/ d/i) Extremity: Normal Inspection, Non Tender, No Pedal Edema Neurologic/Psychiatric: Alert, Oriented x3 Skin: Normal Color, Warm/Dry Lymphatic: No Adenopathy Results Lab Laboratory Tests 11/13/18 06:17: White Blood Count 6.5, Red Blood Count 3.74L, Hemoglobin 11.0L, Hematocrit 34L, Mean Corpuscular Volume 90, Mean Corpuscular Hemoglobin 29, Mean Corpuscular Hemoglobin Concent 33, Red Cell Distribution Width 13.6, Platelet Count 234, Mean Platelet Volume 10.1, Sodium Level 141, Potassium Level 3.2L, Chloride Level 108H, Carbon Dioxide Level 23, Anion Gap 10, Blood Urea Nitrogen 7, Creatinine 0.76, Estimat Glomerular Filtration Rate > 60, BUN/Creatinine Ratio 9, Glucose Level 75, Calcium Level 8.4L Assessment/Plan Assessment/Plan Assessment/Plan S/P Sigmoid resection Will d/c home, with pain Rx (which she says caused some itching on nose and scalp) asks if she can use Benadryl (I said yes). Increase to regular diet and eat more fiber, can use Colace but no need for laxatives. F/U in office in one week, all questions answered to her satisfaction. D/c instructions done. Clinical Quality Measures DVT/VTE Risk/Contraindication: Risk Factor Score Per Nursin RFS Level Per Nursing on Admit: 4+=Very High FITZ HUDSON DO Nov 13, 2018 11:42
[2018-11-13 12:40] VITALS: BP 144/89
== END 2018-11-13 12:40 | disposition home or self-care (01) | DRG 331 ==
LOC: 4TH 09:10 → SURG 09:11 → 4TH 14:13
PROVIDERS: ADMIT Surgery; ATTEND Surgery
PROC: 0DBN0ZZ Excision of Sigmoid Colon, Open Approach (ICD-10-PCS; principal; 2018-11-10 10:45)
DX: K56.699 Other intestinal obstruction unspecified as to partial versus complete obstruction (principal); I10 Essential (primary) hypertension; E11.9 Type 2 diabetes mellitus without complications; F17.210 Nicotine dependence, cigarettes, uncomplicated; Z88.0 Allergy status to penicillin; Z87.19 Personal history of other diseases of the digestive system
CPT/HCPCS: 36415; 80048; 80053; 82962; 85025; 85027; 86850; 86900; 86901; 88307; 94664

== ENCOUNTER → 2019-01-31 | Outpatient (CLI) | payer BC ==
[~2019-01-31] MED LIST changes: +HOLD METFORMIN - RECEIVED CONTRAST 20 ML VIAL IV SCH; +HYDR-3820 PO; +IOHEXOL 350 MG/ML 100 ML (OMNIPAQUE 350) VIAL IV ONE; +NS 100 ML (IVPB) BAG IV ONE
[2019-01-31 07:28] LABS: CREATININE SERUM 0.93 MG/DL (0.60-1.30)
--- NOTE | 2019-01-31 08:32 | Diagnostic Imaging Report ---
PROCEDURE: CT abdomen and pelvis with contrast. TECHNIQUE: Multiple contiguous axial images were obtained through the abdomen and pelvis after administration of intravenous contrast. Auto Exposure Controls were utilized during the CT exam to meet ALARA standards for radiation dose reduction. INDICATION: History of colon resection and pain in that region. COMPARISON: Study compared to 08/20/2016. FINDINGS: There are anastomotic sutural opacities associated with the sigmoid colon. No findings of regional diverticulitis, anastomotic leak, or obstruction. There is no ascites, abscess, hematoma, or fluid collection. There was no focal inflammatory process. No pneumatosis or free gas. There is some presumed postsurgical scarring of the periumbilical subcutaneous fat. No findings of a hernia. No rectus sheath collection. Right hepatic lobe cyst posteriorly noted, the liver otherwise negative. The gallbladder is surgically absent. No pathological biliary distention. Spleen, adrenals, and pancreas are negative. The unobstructed kidneys appeared normal. IMPRESSION: Postsurgical changes without evidence for obstruction, perforation, abscess, inflammatory process, or other acute abnormalities. Dictated by: Dictated on workstation # [id number]
== END ==
LOC: RAD 07:01
PROVIDERS: ATTEND Surgery
DX: R10.9 Unspecified abdominal pain (principal); Z98.890 Other specified postprocedural states; Z90.49 Acquired absence of other specified parts of digestive tract
CPT/HCPCS: 36415; 74177; 82565; 84520